=== PATIENT | female | born 1960 | race Two or more races ===

== ENCOUNTER 2020-02-21 11:44 | Emergency (ER) | payer MEDICAID ==
[~2020-02-21] VITALS: Ht 170.2 cm; Wt 91.2 kg
[2020-02-21 11:50] VITALS: Ht 170.2 cm; Wt 91.2 kg
[2020-02-21 13:45] VITALS: BP 155/75
== END 2020-02-21 13:45 | disposition home or self-care (01) ==
LOC: ED 11:44
DX: R42 Dizziness and giddiness (principal); I10 Essential (primary) hypertension

== ENCOUNTER 2020-02-24 09:47 | Emergency (ER) | payer MEDICAID ==
[~2020-02-24] VITALS: Ht 152.4 cm; Wt 90.7 kg
[2020-02-24 09:53] VITALS: Ht 152.4 cm; Wt 90.7 kg
[2020-02-24 10:22] LABS: BASOPHIL % 0.5 % (0-2); PLATELET COUNT 243 x10^3mcL (130-400); RED CELL DISTRIBUTION WIDTH 13.3 % (11.5-14.5)
[2020-02-24 10:28] LABS: CALCIUM 10.2 mg/dL (8.5-10.1); CARBON DIOXIDE 27.5 mmol/L (21-32); CHLORIDE SERUM 105 mmol/L (98-107); CREATININE SERUM 0.8 mg/dL (0.6-1.0); GFR1 > 60 mL/min; GLUCOSE SERUM 109 mg/dL (74-106); POTASSIUM SERUM 4.1 mmol/L (3.5-5.1); SODIUM SERUM 139 mmol/L (136-145)
[2020-02-24 10:33] LABS: ALBUMIN 3.4 g/dL (3.4-5.0); ALKALINE PHOSPHATASE 76 U/L (46-116); ALT/SGPT 28 U/L (14-59); AST/SGOT 17 U/L (15-37); BILIRUBIN TOTAL 0.56 mg/dL (0.20-1.00); TOTAL PROTEIN, SERUM 7.9 g/dL (6.4-8.2)
[2020-02-24 11:05] LABS: UA SPECIFIC GRAVITY <=1.005 (1.005-1.035); microscopic required? YES; urine erythrocyte TRACE (NEGATIVE)
[2020-02-24 11:43] VITALS: BP 141/77
== END 2020-02-24 11:43 | disposition home or self-care (01) ==
LOC: ED 09:47
PROVIDERS: Emergency Medicine
DX: R42 Dizziness and giddiness (principal); R55 Syncope and collapse; I10 Essential (primary) hypertension
CPT/HCPCS: J2765; J8597

== ENCOUNTER 2020-04-01 10:03 | Emergency (ER) | payer MEDICAID, SELFPAY ==
[~2020-04-01] VITALS: Ht 160 cm; Wt 88.9 kg
[2020-04-01 10:04] VITALS: BP 132/50; Ht 160 cm; Wt 88.9 kg
== END 2020-04-01 11:33 | disposition home or self-care (01) ==
LOC: ED 10:03
DX: U07.1 COVID-19 (principal); I10 Essential (primary) hypertension
CPT/HCPCS: U0003